=== PATIENT | female | born 1965 | race African-American/Black ===

== ENCOUNTER 2020-11-17 13:56 | Emergency (ER) | payer SELFPAY ==
[~2020-11-17] VITALS: Ht 162.6 cm; Wt 117.9 kg
[~2020-11-17 13:56] MED LIST: COLACE; FERROUS SULFATE; METRONIDAZOLE
[2020-11-17] MEDS ORDERED: AMLODIPINE BESYL5 MG PO (14:08)
== END 2020-11-17 14:25 | disposition home or self-care (01) ==
LOC: ER 14:00
DX: I10 Essential (primary) hypertension (principal); M54.2 Cervicalgia; D64.9 Anemia, unspecified
CPT/HCPCS: 99283